=== PATIENT | female | born 1985 | race Caucasian/White ===

== ENCOUNTER 2018-08-05 09:17 | Day surgery (SDC) | payer OTHER ==
[~2018-08-05 09:17] MED LIST: CEFAZOLIN 1 GM INJ
[2018-08-05 10:59] LABS: ADD MAN DIFF? NO
[2018-08-05 11:03] LABS: BASOPHIL # 0.1 10^3/ul (0.0-0.1); BASOPHILS % 0.8 % (0.0-2.0); EOSINOPHILS # 0.1 10^3/ul (0.0-0.5); EOSINOPHILS % 1.2 % (0.0-7.0); HEMATOCRIT 46.2 % (37.0-47.0); HEMOGLOBIN 15.6 g/dl (12.0-16.0); LYMPHOCYTES # 2.7 10^3/ul (0.8-2.9); LYMPHOCYTES % 32.1 % (15.0-51.0); MEAN CORPUSCULAR HEMOGLOBIN 29.8 pg (29.0-33.0); MEAN CORPUSCULAR HGB CONC 33.8 g/dl (32.0-37.0); MEAN CORPUSCULAR VOLUME 88.2 fl (82.0-101.0); MEAN PLATELET VOLUME 9.8 fl (7.4-10.4); MONOCYTE # 0.5 10^3/ul (0.3-0.9); MONOCYTES % 5.4 % (0.0-11.0); NEUTROPHIL # 5.1 10^3/ul (1.6-7.5); NEUTROPHILS % 60.1 % (39.0-77.0); PLATELET COUNT 247 10^3/UL (140-415); RED BLOOD COUNT 5.24 10^6/ul (4.20-5.40); RED CELL DISTRIBUTION WIDTH 12.5 % (11.5-14.5)
[2018-08-05 11:03] LABS: WHITE BLOOD COUNT 8.5 10^3/ul (4.8-10.8)
[2018-08-05 11:20] LABS: ALANINE AMINOTRANSFERASE 16 IU/L (13-69); ALBUMIN 4.4 g/dl (3.3-4.9); ALBUMIN/GLOBULIN RATIO 1.25; ALKALINE PHOSPHATASE 64 IU/L (42-121); ANION GAP 8 (5-13); ASPARTATE AMINO TRANSFERASE 21 IU/L (15-46); BILIRUBIN,INDIRECT 0.7 mg/dl (0-1.1); BILIRUBIN,TOTAL 0.7 mg/dl (0.2-1.3); BLOOD UREA NITROGEN 15 mg/dl (7-20); CALCIUM 9.8 mg/dl (8.4-10.2); CARBON DIOXIDE 26 mmol/L (21-31); CHLORIDE 106 mmol/L (97-110); CREATININE 0.73 mg/dl (0.44-1.00); Estimated GFR > 60 mL/min (>60); GLUCOSE 81 mg/dl (70-220); POTASSIUM 4.4 mmol/L (3.5-5.1); SODIUM 140 mmol/L (135-144); TOTAL PROTEIN 7.9 g/dl (6.1-8.1)
[2018-08-05 11:30] LABS: INR 0.99; PARTIAL THROMBOPLASTIN TIME 25.2 Sec (23.0-35.0); PROTIME 13.2 Sec (11.9-14.9)
[2018-08-05] MEDS ORDERED: MIDAZOLAM 1 MG/ML 2 ML INJ IV (11:30)
[2018-08-05] MEDS ORDERED: EPHEDrine SULFATE 50 MG/5 ML SYG IV (11:30)
[2018-08-05] MEDS ORDERED: ALBUTEROL 0.083% (NEB) 2.5 MG/3 ML AMP HHN (11:30)
[2018-08-05] MEDS ORDERED: hydrALAzine 20 MG INJ IV (11:30)
[2018-08-05] MEDS ORDERED: FENTAnyl 50 MCG/ML VIAL IV ×3 (11:30)
[2018-08-05] MEDS ORDERED: DIPHENHYDRAMINE 50 MG INJ IV (11:30)
[2018-08-05] MEDS ORDERED: LABETALOL HCL 20MG INJ IV (11:30)
[2018-08-05] MEDS ORDERED: IPRATROPIUM (NEB) 0.5 MG/2.5 ML AMP HHN (11:30)
[2018-08-05] MEDS ORDERED: TRIMETHOBENZAMIDE 100 MG/ML VIAL IM (11:30)
[2018-08-05] MEDS ORDERED: OXYCODONE/ACETAMINOPHEN (5/325) TAB PO (11:30)
[2018-08-05] MEDS ORDERED: MEPERIDINE 25 MG INJ IV (11:30)
[2018-08-05] MEDS ORDERED: HYDROmorphONE 1 MG/5 ML IV SYRINGE IV ×3 (11:30)
[2018-08-05] MEDS ORDERED: ONDANSETRON 4 MG INJ IV (11:30)
[2018-08-05] MEDS: CEFAZOLIN 2 GM/50 ML (PMX) 50 ML IVPB (11:42)
[2018-08-05] MEDS ORDERED: PROPOFOL 20 ML (11:46)
[2018-08-05] MEDS ORDERED: FENTAnyl 50 MCG/ML VIAL (11:47)
[2018-08-05] MEDS ORDERED: MIDAZOLAM 1 MG/ML 2 ML INJ (11:47)
[2018-08-05] MEDS ORDERED: ONDANSETRON 4 MG INJ (11:48)
[2018-08-05] MEDS: LIDOCAINE 1% (MPF) 30 ML INJ (12:03)
[2018-08-05] MEDS: BUPIVACAINE 0.25% (MPF) 30 ML INJ (12:03)
[2018-08-05] MEDS: SOD CHLORIDE 0.9% 1,000 ML IV (12:35)
[2018-08-05] MEDS: OXYCODONE/ACETAMINOPHEN (5/325) TAB PO (12:38)
[2018-08-05] MEDS: HYDROCODONE/APAP (5/325) TAB PO (12:53)
== END 2018-08-05 13:50 | disposition home or self-care (01) ==
LOC: SDS 09:17
DX: D17.1 Benign lipomatous neoplasm of skin and subcutaneous tissue of trunk (principal)
CPT/HCPCS: 14001; 80053; 84703; 85025; 85610; 85730; 88307